=== PATIENT | male | born 1990 | race Caucasian/White ===

== ENCOUNTER 2021-07-25 08:02 | Outpatient (REF) | payer OTHER, SELFPAY ==
[2021-07-25 11:24] LABS: MANUAL DIFF FLAG NO
[2021-07-25 11:44] LABS: Basophils Percent Auto 0.6 % (0-2); Eosinophils Absolute Auto 0.3 X10*3/uL (0.0-0.4); Hematocrit 47.7 % (42.0-52.0); Hemoglobin 16.5 g/dl (14.0-18.0); Imm Gran Abs Auto 0.03 X10*3/uL (0.00-0.03); Imm Gran Pct Auto 0.5 % (0.0-0.4); Lymphocytes Absolute Auto 2.2 X10*3/uL (1.2-4.9); Lymphocytes Percent Auto 34.9 % (20-40); Mean Corpuscular HGB Conc 34.6 g/dl (31.0-36.0); Mean Corpuscular Hemoglobin 29.5 pg (27.0-33.0); Mean Corpuscular Volume 85.3 fL (80.0-98.0); Mean Platelet Volume 10.9 fL (9.4-12.4); Monocytes Absolute Auto 0.7 X10*3/uL (0.1-1.2); Neutrophils Absolute Auto 3.1 x10*3/uL (2.0-8.3); Platelet Count 318 X10*3/uL (160-400); Red Blood Count 5.59 X10*6/uL (4.60-5.80); Red Cell Distribution Width 12.3 % (11.0-16.0); White Blood Count 6.3 X10*3/uL (4.8-10.8)
[2021-07-25 12:25] LABS: Alanine Aminotransferase 63 U/L (0-40); Anion Gap 13 (12-20); Aspartate Amino Transferase 31 U/L (5-37); Blood Urea Nitrogen 11 mg/dL (9-16); Calcium 9.3 mg/dL (8.4-10.2); Carbon Dioxide 27 mmol/L (22-29); Chloride 101 mmol/L (96-108); Cholesterol 147 mg/dL; Estimated Glomerular Filt Rate > 60; Glucose Fasting 129 mg/dL (60-99); HDL Cholesterol 36 mg/dL; LDL Cholesterol Calculated 88 mg/dl; Potassium 4.4 mmol/L (3.3-5.1); Sodium 137 mmol/L (135-145); Triglycerides 115 mg/dL
== END 2021-07-25 08:03 | disposition home or self-care (01) ==
LOC: HO.HMGCLDS 08:02
PROVIDERS: PCP Internal Medicine; Visit Provider Internal Medicine
DX: Z00.00 Encounter for general adult medical examination without abnormal findings (principal); I10 Essential (primary) hypertension
CPT/HCPCS: 36415; 80048; 80061; 84450; 84460; 85025

== ENCOUNTER 2022-12-12 10:53 | Outpatient (AMB) | payer OTHER, SELFPAY ==
--- NOTE | 2022-12-12 11:21 | MHC.PC.OV ---
Vital Signs 12/12/22 11:23 Height 6 ft 3 in Weight 242 lb BMI 30.2 BP 130/80 Blood Pressure Location Lt brachial Position Sitting Pulse 96 Pulse Source Pulse Oximeter Pulse Oximetry (%) 97 Oxygen Delivery Method Room Air Intake Visit Reasons: annual PE Intake Note: Pt is here today for her PE Allergies penicillin V Allergy (Unknown, Verified 12/12/22 11:44) unsure BuPROPion HCl (SR) Allergy (Unknown, Uncoded 12/12/22 11:44) worsened depression and anger Fluoxetine Allergy (Unknown, Uncoded 12/12/22 11:44) chest pains, nightmares Medication List - Last Reconciled 12/12/22 by Chelsie Starks MD nicotine (polacrilex) 4 mg PO Q6H Tobacco use date assessed: 12/12/22 HPI annual PE HPI Details 32-year-old male, here today for a physical exam. Currently trying to quit smoking with the help of nicotine gum, now down to just 1 cigarette a day. Has been feeling well , but complains of loud snoring, excessive daytime sleepiness, and had several witnessed apneic spells, for the last several months. [facility] Medical History (Updated 12/12/22 @ 11:50 by Chelsie Starks MD) Loud snoring Excessive daytime sleepiness Witnessed apneic spells Elevated fasting glucose Cigarette smoker motivated to quit Alopecia Dislocation of right ankle joint Depression ADHD Surgical History No pertinent past surgical history Family History Maternal Grandfather Prostate cancer Other Substance use disorder Social History Housing: House Alcohol intake: former Year quit: 2019 Patient Tobacco Use Status: Current everyday Tobacco user Tobacco use type: Cigarette Cigarette Packs Per Day: 1 Years Smoked: 15 years e-Cigarette/Vaping Use: Never Used service: No Current occupational status: employed Cognitive needs: No Hearing needs: No Vision needs: No Questionnaire PHQ-9 Over the last 2 weeks, how often have you been bothered by any of the following problems? 1. Little interest or pleasure in doing things: not at all 2. Feeling down, depressed, or hopeless: not at all 3. Trouble falling or staying asleep, or sleeping too much: nearly every day 4. Feeling tired or having little energy: several days 5. Poor appetite or overeating: not at all 6. Feeling bad about yourself - or that you are a failure or have let yourself or your family down: not at all 7. Trouble concentrating on things, such as reading the newspaper or watching television: not at all 8. Moving or speaking so slowly that other people could have noticed. Or the opposite - being so fidgety or restless that you have been moving around a lot more than usual: not at all 9. Thoughts that you would be better off or of hurting yourself in some way: not at all Total score: 4 Depression Screening Interpretation: Negative 38422 - PHQ-9 Billing: Yes Source: Developed by Drs. Kamar Tolbert, Laura Yan, Hugh Tracy and colleagues, with an educational pete from [employer]. Thrive Questionnaire Declines Thrive assessment: No Date Thrive assessed: 12/12/22 I am a: Patient What is your living situation today?: I have a steady place to live Within the past 12 months, did the food you bought not last and you didn't have the money to get more?: Never true Within the past 12 months, did you worry whether your food would run out before you got money to buy more?: Never true Do you have trouble paying for medicines?: No Do you have trouble getting transportation to medical appointments?: No Do you have trouble paying your heating and electricity bill?: No Do you have trouble taking care of your child, family member or friend?: No Do you have trouble with day-to-day activities such as bathing, preparing meals, shopping, managing finances, etc.?: No Are you currently unemployed and looking for a job?: No Are you interested in more education?: Yes AUDIT C Alcohol Use Questionnaire (AUDIT-C) 1. How often do you have a drink containing alcohol?: Monthly or less 2. How many drinks containing alcohol do you have on a typical day when you are drinking?: 1 or 2 3. How often do you have six or more drinks on one occasion?: Never Total Score: 1 JR-7 AMB Questionnaire JR-7 Date JR - 7 assessed: 12/12/22 Feeling nervous, anxious, or on edge: 1 = Several days Not being able to stop or control worryin = Not at all Worrying too much about different things: 1 = Several days Trouble relaxin = Not at all Being so restless that it is hard to sit still: 0 = Not at all Becoming easily annoyed or irritable: 0 = Not at all Feeling afraid as if something awful might happen: 1 = Several days Total JR-7 score (0-4 normal; 5-9 mild; 10-14 moderate; 15-21 severe): 3 Source: Developed by Drs. Kamar Tolbert, Laura Yan, Hugh Tracy and colleagues, with an educational pete from [employer]. JR-7 Assessment Billing JR-7 Assessment Tool: JR-7 Assessment 34521 Review of Systems Const Reports as per HPI, Denies body aches, Denies chills, Denies fever(s), Denies headache(s) and Denies malaise Eyes Denies change in vision ENT Reports no additional complaints and Denies headache(s) Card Denies chest pain, Denies rapid heart rate, Denies irregular heart rhythm and Denies lightheadedness Resp Reports as per HPI, Denies chest congestion, Denies cough and Denies wheezing GI Reports no additional complaints Reports no additional complaints Musc Reports no additional complaints Skin/Breast Denies rash Neuro Denies headache(s) Psych Reports no additional complaints Endo Reports no additional complaints Get/Lymph Reports no additional complaints Aller/Immun Denies wheezing Physical exam (Primary Care) Vital Signs: Last Vital Signs Pulse 96 12/12/22 11:23 BP 130/80 12/12/22 11:23 Pulse Ox 97 12/12/22 11:23 Oxygen Delivery Method Room Air 12/12/22 11:23 BMI result Body Mass Index 30.2 Tobacco/Smoking Status: Tobacco use Status Tobacco use date assessed 12/12/22 12/12/22 11:25 Patient Tobacco Use Status Current everyday Tobacco 12/12/22 11:25 Tobacco use type Cigarette 12/12/22 11:25 e-Cigarette/Vaping Use Never Used 12/12/22 11:25 PHQ-9: PHQ-9 Score PHQ-9: Total score 4 12/12/22 12:01 Depression Screening Interpretation: Negative Thrive Assessment: Date of Thrive Assessment Date Thrive assessed 12/12/22 12/12/22 11:30 Const General: cooperative, comfortable and no acute distress Orientation/consciousness: patient oriented x3 HENMT Ears: external ears normal, TM's normal bilaterally and EAC's normal General nose exam: Normal external nose present and No nasal discharge present Mouth: Normal oral and palatal mucosa present, oropharynx normal and moist mucous membranes Throat: Yes posterior oropharynx normal Eyes General: appearance normal, both eyes and all related structures Conjunctivae: conjunctivae normal Pupils: Equal, round and reactive pupils present EOM: EOMs intact bilaterally Neck Neck: Yes full ROM, Yes no lymphadenopathy and Yes supple Chest Chest palpation & inspection: normal inspection of the chest Resp Effort & Inspection: normal respiratory effort and able to speak in complete sentences Auscultation: clear to auscultation bilaterally Cardio Rate: regular rate Rhythm: regular rhythm Heart sounds: S1 normal heart sound present and S2 normal heart sound present GI Inspection: Yes normal to inspection Palpation (GI): Soft to palpation, nontender and no masses Auscultation: normal bowel sounds Male General Exam: Yes normal external exam Back/Spine/Pelvis Cervical Spine: cervical ROM normal Thoracic/Lumbar Spine: thoracic and lumbar spine normal to inspection Skin General skin exam: no rashes or lesions noted Neuro General: patient oriented x3, gait normal, tone normal, moves all extremities, Normal light touch and pain sensation and no focal motor deficits Cranial nerves: Yes Equal, round and reactive pupils present Cognition (Neuro): normal cognition Gait exam (Neuro): Normal gait present Motor exam (neuro): 5/5 motor strength present throughout Extrem General: Yes full ROM, Yes no joint enlargement, Yes no pedal edema, Yes no calf tenderness and Yes normal gait Psych Appearance: grossly normal Mental Status: mental status grossly normal Speech and movement: Normal speech and movement present Affect: normal affect Assessment and Plan Assessment & Plan (1) Annual visit for general adult medical examination with abnormal findings: Code(s): Z00.01 - Encounter for general adult medical examination with abnormal findings Plan: Will check appropriate labs. Recommended dental visit every 6 months and regular eye exams, at least every 2 years. Instructed due self-testicular exam to check for any mass. Had 1 COVID vaccination, does not want to get further vaccines, does not get flu vaccines, up-to-date with his Tdap (2) Loud snoring: Code(s): R06.83 - Snoring Plan: Referred to sleep clinic for evaluation for possible obstructive sleep apnea (3) Excessive daytime sleepiness: Code(s): G47.19 - Other hypersomnia Plan: Referred to sleep clinic for evaluation for possible obstructive sleep apnea (4) Witnessed apneic spells: Code(s): R06.81 - Apnea, not elsewhere classified Plan: Referred to sleep clinic for evaluation for possible obstructive sleep apnea (5) Elevated fasting glucose: Code(s): R73.01 - Impaired fasting glucose Plan: Your fasting blood sugars in the past were elevated above 100 mg/dL. Impaired glucose metabolism increases the risk for developing diabetes mellitus type 2, as well as heart attack and stroke later on. Lifestyle changes at just weight loss, healthy eating habits, and regular exercise are important, and can prevent the progression to diabetes Orders: Orders Basic Metabolic Panel Fasting 12/12/22 R73.01 - Impaired fasting glucose, Z00.01 - Encounter for general adult medical examination with abnormal findings Hemoglobin A1c 12/12/22 R73.01 - Impaired fasting glucose, Z00.01 - Encounter for general adult medical examination with abnormal findings Lipid Panel 12/12/22 R73.01 - Impaired fasting glucose, Z00.01 - Encounter for general adult medical examination with abnormal findings Alanine Aminotransferase 12/12/22 R73.01 - Impaired fasting glucose, Z00.01 - Encounter for general adult medical examination with abnormal findings Aspartate Amino Transferase 12/12/22 R73.01 - Impaired fasting glucose, Z00.01 - Encounter for general adult medical examination with abnormal findings Referrals Sleep Medicine Referral R06.81 - Apnea, not elsewhere classified, G47.19 - Other hypersomnia, R06.83 - Snoring Coding Level of Care Code Est Pt Prev Care 18-39y(64934) Diagnoses Annual visit for general adult medical examination with abnormal findings Z00.01 Loud snoring R06.83 Excessive daytime sleepiness G47.19 Witnessed apneic spells R06.81 Elevated fasting glucose R73.01 Additional Codes JR-7 Assessment Billing - JR-7 Assessment Tool: JR-7 Assessment 56030 ([id number])
[2022-12-12 11:23] VITALS: BP 130/80; PULSE 96; O2SAT 97; BMI 30.2
== END 2022-12-12 12:02 | disposition home or self-care (01) ==
PROVIDERS: PCP Internal Medicine; Visit Provider Internal Medicine
DX: Z00.01 Encounter for general adult medical examination with abnormal findings (principal); R06.83 Snoring; G47.19 Other hypersomnia; R06.81 Apnea, not elsewhere classified; R73.01 Impaired fasting glucose
CPT/HCPCS: 99499

== ENCOUNTER → 2024-09-04 13:21 | Outpatient (BNVA) | payer OTHER, SELFPAY | PROVIDERS: PCP Internal Medicine; Visit Provider Nurse Practitioner Psychiatric/Mental Health ==

== ENCOUNTER → 2024-09-05 09:24 | Outpatient (BNV) | payer OTHER, SELFPAY | PROVIDERS: PCP Internal Medicine; Visit Provider Nurse Practitioner Psychiatric/Mental Health | DX: Z51.81 Encounter for therapeutic drug level monitoring (principal) | CPT/HCPCS: 80307 ==

== ENCOUNTER 2024-09-08 13:24 | Outpatient (AMB) | payer OTHER, SELFPAY ==
--- NOTE | 2024-09-08 13:44 | MHC.AM.SUB ---
Intake Visit Reasons: Intake office Allergies penicillin V Allergy (Unknown, Verified 12/12/22 11:44) unsure BuPROPion HCl (SR) Allergy (Unknown, Uncoded 12/12/22 11:44) worsened depression and anger Fluoxetine Allergy (Unknown, Uncoded 12/12/22 11:44) chest pains, nightmares HPI HPI Intake office: Details: Patient presents for intake and continuation of treatment for stimulant use disorder and alcohol use disorder Patient was seen by RN last week and intake completed at that time RN note reviewed and additional history obtained from patient He reports that he was discharged from [facility] level of care recently and was referred here for continuation of treatment He reports last drink and substance use was on August 26--day of admission to [facility] Crack cocaine and alcohol History of [facility] treatment, including [facility] He reports [facility] was his first formal admission for treatment He states that in the past he had gone to [facility] and prescribed Buprenorphine for the treatment of opiate use He had been taking Dilaudid--denies any opiate use for a long time Denies any history of overdose Denies any injection drug use Reports a strong family history of substance use --reports his mother introduced him to drugs Denies any history of psychiatric admissions or behavioral health treatment Longest period in recovery---current Recovery Supports -Dom and Millie friends who are in recovery -Zohaib -partner Not working at this 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 Discussed continuation of treatment with IOP labs and notes from [facility] reviewed Review of Systems Const Reports as per HPI Physical Exam Const General: cooperative, healthy appearing and well groomed Orientation/consciousness: patient oriented x3 Limitations: no limitations Neuro General: patient oriented x3 Psych Appearance: well kempt Speech and movement: Pressured speech present Affect: Animated affect present Attitude: cooperative Thought process: Circumstantial thought process present Thought content: Normal thought content present Insight: Good insight present (Psych) Judgement: Good judgement present (Psych) Assessment & Plan Assessment & Plan (1) Alcohol use disorder, severe, dependence: Code(s): F10.20 - Alcohol dependence, uncomplicated Category: Medical Plan: relapse prevention discussion continue mediation as prescribed provided with information to [facility] for [facility].IOP admission (2) Cocaine use disorder: Code(s): F14.10 - Cocaine abuse, uncomplicated Category: Medical Plan: relapse prevention discussion continue baclofen as prescribed Medications: New baclofen 10 mg PO TID 90 tabs 0RF duloxetine 20 mg PO DAILY 30 caps 0RF hydroxyzine HCl 50 mg PO TID PRN 90 tabs 0RF anxiety clonidine HCl 0.1 mg PO TID PRN 90 tabs 0RF anxiety quetiapine (Seroquel) 50 mg PO BEDTIME 30 tabs 0RF PFSH Medical History (Updated 09/08/24 @ 16:03 by Shanita Portillo CNP) Loud snoring Excessive daytime sleepiness Witnessed apneic spells Elevated fasting glucose Cigarette smoker motivated to quit Alopecia Dislocation of right ankle joint Depression ADHD Surgical History No pertinent past surgical history Family History Maternal Grandfather Prostate cancer Other Substance use disorder Social History Housing: House Alcohol intake: former Year quit: 2019 Patient Tobacco Use Status: Current everyday Tobacco user Tobacco use type: Cigarette Cigarette Packs Per Day: 1 Years Smoked: 15 years e-Cigarette/Vaping Use: Never Used service: No Current occupational status: employed Cognitive needs: No Hearing needs: No Vision needs: No
== END 2024-09-08 14:27 | disposition home or self-care (01) ==
PROVIDERS: PCP Internal Medicine; Visit Provider Nurse Practitioner Psychiatric/Mental Health
DX: F14.10 Cocaine abuse, uncomplicated (principal); F10.20 Alcohol dependence, uncomplicated
CPT/HCPCS: 99214

== ENCOUNTER → 2024-09-08 13:24 | Outpatient (BNVA) | payer OTHER, SELFPAY | PROVIDERS: PCP Internal Medicine; Visit Provider Nurse Practitioner Psychiatric/Mental Health | DX: F11.20 Opioid dependence, uncomplicated (principal) | CPT/HCPCS: 99212 ==

== ENCOUNTER 2024-09-22 14:07 | Outpatient (AMB) | payer OTHER, SELFPAY ==
--- NOTE | 2024-09-22 14:31 | A.OFFVISCC_ITS ---
Intake Visit Reasons: Follow up Allergies penicillin V Allergy (Unknown, Verified 12/12/22 11:44) unsure BuPROPion HCl (SR) Allergy (Unknown, Uncoded 12/12/22 11:44) worsened depression and anger Fluoxetine Allergy (Unknown, Uncoded 12/12/22 11:44) chest pains, nightmares [facility] HPI Follow up: Details: Patient presents for follow up started [facility] attending 6 days per week From 12-3p--that way he can attend the gym which is very helpful to him NA 1-2x/week He was started on gabapentin 100mg QHS at [facility] as well finds it very helpful continues to abstain from alcohol and substance use discussing challenges with wanting him to return to work--he will be bringing her in to [facility] for family meeting Review of Systems Const Reports as per HPI and Reports no additional complaints Physical Exam Const General: cooperative, healthy appearing and well groomed Nutritional Appearance: average body habitus Orientation/consciousness: patient oriented x3 Limitations: no limitations Neuro General: patient oriented x3 Psych Appearance: well kempt Speech and movement: Normal speech and movement present Affect: normal affect Attitude: cooperative Thought process: Normal thought process present Thought content: Normal thought content present Insight: Good insight present (Psych) Judgement: Good judgement present (Psych) Assessment & Plan Assessment & Plan (1) Cocaine use disorder: Code(s): F14.10 - Cocaine abuse, uncomplicated Category: Medical Plan: * relapse prevention discussion * follow up 3-4 weeks (2) Alcohol use disorder, severe, dependence: Code(s): F10.20 - Alcohol dependence, uncomplicated Category: Medical Plan: * relapse prevention discussion * follow up as scheduled Orders: Referrals Counseling Referral F10.20 - Alcohol dependence, uncomplicated, F14.10 - Cocaine abuse, uncomplicated [facility] Medical History (Updated 09/08/24 @ 16:03 by Shanita Portillo CNP) Loud snoring Excessive daytime sleepiness Witnessed apneic spells Elevated fasting glucose Cigarette smoker motivated to quit Alopecia Dislocation of right ankle joint Depression ADHD Surgical History No pertinent past surgical history Family History Maternal Grandfather Prostate cancer Other Substance use disorder Social History Housing: House Alcohol intake: former Year quit: 2019 Patient Tobacco Use Status: Current everyday Tobacco user Tobacco use type: Cigarette Cigarette Packs Per Day: 1 Years Smoked: 15 years e-Cigarette/Vaping Use: Never Used service: No Current occupational status: employed Cognitive needs: No Hearing needs: No Vision needs: No
== END 2024-09-22 14:47 | disposition home or self-care (01) ==
PROVIDERS: PCP Internal Medicine; Visit Provider Nurse Practitioner Psychiatric/Mental Health
DX: F14.10 Cocaine abuse, uncomplicated (principal); F10.20 Alcohol dependence, uncomplicated
CPT/HCPCS: 99213

== ENCOUNTER → 2024-09-22 14:07 | Outpatient (BNVA) | payer OTHER, SELFPAY | PROVIDERS: PCP Internal Medicine; Visit Provider Nurse Practitioner Psychiatric/Mental Health | DX: F14.10 Cocaine abuse, uncomplicated (principal); F10.20 Alcohol dependence, uncomplicated | CPT/HCPCS: 99212 ==

== ENCOUNTER 2024-11-13 14:55 | Outpatient (AMB) | payer OTHER, SELFPAY ==
--- NOTE | 2024-11-13 15:03 | MHC.AM.SUB ---
Vital Signs 11/13/24 18:17 BP 168/100 H Blood Pressure Location Rt brachial Pulse 116 H Intake Visit Reasons: MAT Office Allergies penicillin V Allergy (Unknown, Verified 12/12/22 11:44) unsure BuPROPion HCl (SR) Allergy (Unknown, Uncoded 12/12/22 11:44) worsened depression and anger Fluoxetine Allergy (Unknown, Uncoded 12/12/22 11:44) chest pains, nightmares HPI HPI MAT Office: Details: Patient presents for follow up Reports he was admitted to [facility] October 09 Discharged October 30 Back to [facility] 5 days per week NA in [place] Reporting high blood pressure --yesterday 180/100--blurred vision and headache (yesterday) No sx today, no dizziness, SOB, headache Discussed risk with BP readings encouraged to be seen in ED or urgent care, patient states he will if he begins to feel bad again Review of Systems Const Reports as per HPI and Reports headache(s) Eyes Reports blurry vision ENT Reports headache(s) Neuro Reports headache(s) Psych Reports anxiety Physical Exam Const General: cooperative, healthy appearing and well groomed Nutritional Appearance: average body habitus Orientation/consciousness: patient oriented x3 Limitations: no limitations Neuro General: patient oriented x3 Psych Appearance: well kempt Speech and movement: Normal speech and movement present Affect: normal affect Attitude: cooperative Thought process: Normal thought process present Thought content: Normal thought content present Insight: Good insight present (Psych) Judgement: Good judgement present (Psych) [facility] Medical History (Updated 09/08/24 @ 16:03 by Shanita Portillo CNP) Loud snoring Excessive daytime sleepiness Witnessed apneic spells Elevated fasting glucose Cigarette smoker motivated to quit Alopecia Dislocation of right ankle joint Depression ADHD Surgical History No pertinent past surgical history Family History Maternal Grandfather Prostate cancer Other Substance use disorder Social History Housing: House Alcohol intake: former Year quit: 2019 Patient Tobacco Use Status: Current everyday Tobacco user Tobacco use type: Cigarette Cigarette Packs Per Day: 1 Years Smoked: 15 years e-Cigarette/Vaping Use: Never Used service: No Current occupational status: employed Cognitive needs: No Hearing needs: No Vision needs: No Assessment & Plan Assessment & Plan (1) Cocaine use disorder: Code(s): F14.10 - Cocaine abuse, uncomplicated Category: Medical Plan: relapse prevention discussion follow up 3-4 weeks advised to present to ED or urgent care for BP management (2) Alcohol use disorder, severe, dependence: Code(s): F10.20 - Alcohol dependence, uncomplicated Category: Medical Plan: relapse prevention discussion follow up as scheduled Medications: Refilled baclofen 10 mg PO TID 270 tabs 0RF clonidine HCl 0.1 mg PO TID PRN 90 tabs 3RF anxiety
[2024-11-13 18:17] VITALS: BP 168/100; PULSE 116
== END 2024-11-13 15:34 | disposition home or self-care (01) ==
PROVIDERS: PCP Internal Medicine; Visit Provider Nurse Practitioner Psychiatric/Mental Health
DX: F14.10 Cocaine abuse, uncomplicated (principal); F10.20 Alcohol dependence, uncomplicated
CPT/HCPCS: 99214

== ENCOUNTER → 2024-11-13 14:55 | Outpatient (BNVA) | payer OTHER, SELFPAY | PROVIDERS: PCP Internal Medicine; Visit Provider Nurse Practitioner Psychiatric/Mental Health | DX: F14.10 Cocaine abuse, uncomplicated (principal); F10.20 Alcohol dependence, uncomplicated | CPT/HCPCS: 99212 ==

== ENCOUNTER 2025-03-13 13:36 | Outpatient (AMB) | payer OTHER, SELFPAY ==
[2025-03-13 13:46] VITALS: PULSE 102; O2SAT 98; BMI 30.6
--- NOTE | 2025-03-13 13:46 | MHC.OFFVIS ---
Vital Signs 03/13/25 13:46 Height 6 ft 3 in Weight 245 lb BMI 30.6 Pulse 102 H Pulse Source Pulse Oximeter Pulse Oximetry (%) 98 Oxygen Delivery Method Room Air Intake Visit Reasons: MAT Intake Allergies penicillin V Allergy (Unknown, Verified 03/13/25 13:46) unsure BuPROPion HCl (SR) Allergy (Unknown, Uncoded 12/12/22 11:44) worsened depression and anger Fluoxetine Allergy (Unknown, Uncoded 12/12/22 11:44) chest pains, nightmares HPI Comments Details: He is a new intake, He was last seen at [facility] two weeks ago. He has Dr Starks as PCP. His last use was earlier this month as has script for Suboxone for seven days from Dr Cristobal,done on 03/10. 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 He has 13 year old twins. Substance use history prior cocaine prior alcohol distant opioids,pills Social no domestic violence denies IVDU Recovery history no AA or peer support mood disorder No SI or HI PFSH Medical History Loud snoring Excessive daytime sleepiness Witnessed apneic spells Elevated fasting glucose Cigarette smoker motivated to quit Alopecia Dislocation of right ankle joint Depression ADHD Surgical History No pertinent past surgical history Family History Maternal Grandfather Prostate cancer Other Substance use disorder Social History Housing: House Alcohol intake: former Year quit: 2019 Patient Tobacco Use Status: Current everyday Tobacco user Tobacco use type: Cigarette Cigarette Packs Per Day: 1 Years Smoked: 15 years e-Cigarette/Vaping Use: Never Used service: No Current occupational status: employed Cognitive needs: No Hearing needs: No Vision needs: No Review of Systems Const All systems reviewed & are unremarkable except as noted in HPI and below Physical Exam Vital Signs: Last Vital Signs Pulse 102 H 03/13/25 13:46 Pulse Ox 98 03/13/25 13:46 Oxygen Delivery Method Room Air 03/13/25 13:46 BMI result Body Mass Index 30.6 Const General: cooperative Assessment & Plan Assessment & Plan (1) Alcohol use disorder, severe, dependence: Code(s): F10.20 - Alcohol dependence, uncomplicated Category: Medical Plan: He has been doing better on Suboxone (2) Cocaine use disorder: Comment: Baclofen helps with cocaine dependence Code(s): F14.10 - Cocaine abuse, uncomplicated Category: Medical Plan: na Medications: New thiamine HCl (vitamin B1) 100 mg PO DAILY 30 caps 3RF 30 days hydroxyzine HCl 50 mg PO TID PRN 90 tabs 3RF itching 30 days clonidine HCl 0.1 mg PO TID 30 days 90 tabs 3RF clonidine HCl 0.1 mg PO TID PRN 90 tabs 3RF withdrawal symptoms 30 days duloxetine 20 mg PO DAILY 30 caps 3RF 30 days baclofen 10 mg PO TID PRN 90 tabs 3RF muscle spasm 30 days folic acid 1 mg PO DAILY 30 tabs 3RF 30 days quetiapine (Seroquel) 100 mg PO BEDTIME 30 tabs 3RF 30 days gabapentin 100 mg PO BID 60 caps 3RF 30 days buprenorphine-naloxone 8-2 mg (Suboxone) 1 film sublingual BID 60 ea 0RF 30 days Coding Level of Care Code New Pt Level 4 (97907) Diagnoses Alcohol use disorder, severe, dependence F10.20 Cocaine use disorder F14.10
== END 2025-03-13 14:21 | disposition home or self-care (01) ==
LOC: HO.HCC 13:36
PROVIDERS: PCP Internal Medicine; Visit Provider Internal Medicine
DX: F10.20 Alcohol dependence, uncomplicated (principal); F14.10 Cocaine abuse, uncomplicated
CPT/HCPCS: 99204

== ENCOUNTER → 2025-03-13 13:36 | Outpatient (BNVA) | payer OTHER, SELFPAY | PROVIDERS: PCP Internal Medicine; Visit Provider Internal Medicine | DX: F10.20 Alcohol dependence, uncomplicated (principal); F14.10 Cocaine abuse, uncomplicated; Z79.899 Other long term (current) drug therapy | CPT/HCPCS: 99202 ==

== ENCOUNTER 2025-05-05 15:41 | Outpatient (AMB) | payer OTHER, SELFPAY ==
[2025-05-05 15:50] VITALS: BP 126/80; PULSE 110; O2SAT 97; BMI 31.7
--- NOTE | 2025-05-05 15:50 | MHC.OFFVIS ---
Vital Signs 05/05/25 15:50 Height 6 ft 3 in Weight 254 lb BMI 31.7 BP 126/80 Pulse 110 H Pulse Oximetry (%) 97 Intake Visit Reasons: MAT Allergies penicillin V Allergy (Unknown, Verified 05/05/25 15:51) unsure BuPROPion HCl (SR) Allergy (Unknown, Uncoded 05/05/25 15:51) worsened depression and anger Fluoxetine Allergy (Unknown, Uncoded 05/05/25 15:51) chest pains, nightmares Medication List - Last Reconciled 05/05/25 by Patricia Philip VISUAL COORDINATOR-C buprenorphine-naloxone 8-2 mg (Suboxone) 1 film sublingual BID 30 days clonidine HCl 0.1 mg PO TID PRN 30 days duloxetine 20 mg PO DAILY 30 days folic acid 1 mg PO DAILY 30 days gabapentin 100 mg PO BID 30 days hydroxyzine HCl 50 mg PO TID PRN 30 days quetiapine (Seroquel) 100 mg PO BEDTIME 30 days thiamine HCl (vitamin B1) 100 mg PO DAILY 30 days HPI Comments Details: A 35-year-old male presents for a follow-up visit r/t SHERIF in remission with use of buprenorphine-naloxone. Reports mid evening mild cravings and is requesting an increase in the buprenorphine-naloxone dose. 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 Denies use of opiates, alcohol, and other substances. Notes smoking cigarettes and is working towards decreasing the frequency. [facility] Medical History Loud snoring Excessive daytime sleepiness Witnessed apneic spells Elevated fasting glucose Cigarette smoker motivated to quit Alopecia Dislocation of right ankle joint Depression ADHD Surgical History No pertinent past surgical history Family History Maternal Grandfather Prostate cancer Other Substance use disorder Social History Housing: House Alcohol intake: former Year quit: 2019 Patient Tobacco Use Status: Current everyday Tobacco user Tobacco use type: Cigarette Cigarette Packs Per Day: 1 Years Smoked: 15 years e-Cigarette/Vaping Use: Never Used service: No Current occupational status: employed Cognitive needs: No Hearing needs: No Vision needs: No Review of Systems Const All systems reviewed & are unremarkable except as noted in HPI and below Physical Exam Vital Signs: Last Vital Signs Pulse 110 H 05/05/25 15:50 BP 126/80 05/05/25 15:50 Pulse Ox 97 05/05/25 15:50 BMI result Body Mass Index 31.7 Const General: cooperative and well groomed Orientation/consciousness: patient oriented x3 Limitations: no limitations Neuro General: patient oriented x3 Psych Appearance: well kempt Mental Status: mental status grossly normal Speech and movement: Normal speech and movement present Affect: Animated affect present Attitude: cooperative Thought process: Normal thought process present Thought content: Normal thought content present Insight: Good insight present (Psych) Judgement: Good judgement present (Psych) Assessment & Plan Assessment & Plan (1) Opioid use disorder, severe, in early remission: Code(s): F11.21 - Opioid dependence, in remission Category: Medical Plan The plan of care is to increase the dose of the buprenorphine-naloxone from 8-2 mg BID to buprenorphine-naloxone 8-2 mg TID. Information and phone number provided for [facility] to connect to mental health services. Medications: Changed From buprenorphine-naloxone 8-2 mg (Suboxone) 1 film sublingual BID 30 days 60 ea 0RF To buprenorphine-naloxone 8-2 mg (Suboxone) One film sublingually three times per day 1 film sublingual TID 90 ea 0RF 30 days Patient Instructions: - start on increased dose of buprenorphine-naloxone as prescribed. - Follow-up with [facility] to initiate mental health services. - Call with questions, concerns, or to report side effects/new onset of symptoms to [facility]. - The patient verbalized understanding and agreed with plan of care. Coding Level of Care Code Est Pt Level 3 (91589) Diagnoses Opioid use disorder, severe, in early remission F11.21
== END 2025-05-05 16:27 | disposition home or self-care (01) ==
PROVIDERS: PCP Internal Medicine; Visit Provider Clinical Nurse Specialist Psychiatric/Mental Health
DX: F11.21 Opioid dependence, in remission (principal)
CPT/HCPCS: 99213

== ENCOUNTER → 2025-05-05 15:41 | Outpatient (BNVA) | payer OTHER, SELFPAY | PROVIDERS: PCP Internal Medicine; Visit Provider Clinical Nurse Specialist Psychiatric/Mental Health | DX: F11.21 Opioid dependence, in remission (principal) | CPT/HCPCS: 99212 ==

== ENCOUNTER 2025-06-04 15:35 | Outpatient (AMB) | payer OTHER, SELFPAY ==
[2025-06-04 16:10] VITALS: BP 138/98; PULSE 88; O2SAT 99
--- NOTE | 2025-06-04 16:10 | MHC.AM.SUB ---
Vital Signs 06/04/25 16:10 BP 138/98 H Position Sitting Pulse 88 Pulse Source Pulse Oximeter Pulse Oximetry (%) 99 Oxygen Delivery Method Room Air Intake Visit Reasons: MAT Allergies penicillin V Allergy (Unknown, Verified 05/05/25 15:51) unsure BuPROPion HCl (SR) Allergy (Unknown, Uncoded 05/05/25 15:51) worsened depression and anger Fluoxetine Allergy (Unknown, Uncoded 05/05/25 15:51) chest pains, nightmares HPI Comments Details: A 35-year-old male presents for a follow-up visit r/t SHERIF in sustained remission with buprenorphine-naloxone 8-2 mg TID. Denies use of opiates, alcohol, and other substances. Engages in conversation regarding misplacing a couple of buprenorphine-naloxone strips and is feeling mild withdrawals. Attributes the occurrence to moving around to different places during the work day. Reports continuing to work full-time and the increase dose of buprenorphine-naloxone helps him to feel stable through the day. Review of Systems Const All systems reviewed & are unremarkable except as noted in HPI and below Physical Exam Vital Signs: Last Vital Signs Pulse 88 06/04/25 16:10 BP 138/98 H 06/04/25 16:10 Pulse Ox 99 06/04/25 16:10 Oxygen Delivery Method Room Air 06/04/25 16:10 Const General: cooperative [facility] Medical History Loud snoring Excessive daytime sleepiness Witnessed apneic spells Elevated fasting glucose Cigarette smoker motivated to quit Alopecia Dislocation of right ankle joint Depression ADHD Surgical History No pertinent past surgical history Family History Maternal Grandfather Prostate cancer Other Substance use disorder Social History Housing: House Alcohol intake: former Year quit: 2019 Patient Tobacco Use Status: Current everyday Tobacco user Tobacco use type: Cigarette Cigarette Packs Per Day: 1 Years Smoked: 15 years e-Cigarette/Vaping Use: Never Used service: No Current occupational status: employed Cognitive needs: No Hearing needs: No Vision needs: No Assessment & Plan Assessment & Plan (1) Opioid use disorder, severe, in early remission: Code(s): F11.21 - Opioid dependence, in remission Category: Medical Plan The plan of care is to continue on buprenorphine-naloxone 8-2 mg TID and follow up in 1 month or sooner if needed. Education provided regarding ANDERSON, Sublocade and Brixadi by inorganic chemist. Medications: New melatonin Take 1-2 tablets at bedtime as needed for symptoms of insomnia. 5 mg PO BEDTIME PRN 60 tabs 3RF sleep 30 days Refilled buprenorphine-naloxone 8-2 mg (Suboxone) One film sublingually three times per day 1 film sublingual TID 90 ea 0RF 30 days Patient Instructions: - Continue with buprenorphine-naloxone as prescribed. - Take melatonin as needed for symptoms of insomnia. - Follow-up in 1 month or sooner if needed. - Call with questions, concerns, or to report side effects/new onset of symptoms to [facility]. - The patient verbalized understanding and agreed with plan of care.
== END 2025-06-04 16:57 | disposition home or self-care (01) ==
PROVIDERS: PCP Internal Medicine; Visit Provider Clinical Nurse Specialist Psychiatric/Mental Health
DX: F11.21 Opioid dependence, in remission (principal)
CPT/HCPCS: 99213

== ENCOUNTER → 2025-06-04 15:35 | Outpatient (BNVA) | payer OTHER, SELFPAY | PROVIDERS: PCP Internal Medicine; Visit Provider Clinical Nurse Specialist Psychiatric/Mental Health | DX: F11.21 Opioid dependence, in remission (principal) | CPT/HCPCS: 99212 ==

== ENCOUNTER 2025-08-31 15:18 | Outpatient (AMB) | payer OTHER, SELFPAY ==
[2025-08-31 15:25] VITALS: BP 138/78; PULSE 82; O2SAT 98
--- NOTE | 2025-08-31 15:25 | A.OFFVISCC_ITS ---
Vital Signs 08/31/25 15:25 BP 138/78 Pulse 82 Pulse Oximetry (%) 98 Intake Visit Reasons: MAT Allergies penicillin V Allergy (Unknown, Verified 08/31/25 15:26) unsure BuPROPion HCl (SR) Allergy (Unknown, Uncoded 08/31/25 15:26) worsened depression and anger Fluoxetine Allergy (Unknown, Uncoded 08/31/25 15:26) chest pains, nightmares HPI Comments Details: A 35-year-old male presents for follow-up visit r/t SHERIF in sustained remission with buprenorphine-naloxone 8-2 mg TID. Reports continues to work full-time and is looking forward to spending holidays with his immediate family. Denies use of opiates, alcohol, and other substances. Review of Systems Const All systems reviewed & are unremarkable except as noted in HPI and below Physical Exam Vital Signs: Last Vital Signs Pulse 82 08/31/25 15:25 BP 138/78 08/31/25 15:25 Pulse Ox 98 08/31/25 15:25 Const General: cooperative [facility] Medical History Loud snoring Excessive daytime sleepiness Witnessed apneic spells Elevated fasting glucose Cigarette smoker motivated to quit Alopecia Dislocation of right ankle joint Depression ADHD Surgical History No pertinent past surgical history Family History Maternal Grandfather Prostate cancer Other Substance use disorder Social History Housing: House Alcohol intake: former Year quit: 2019 Patient Tobacco Use Status: Current everyday Tobacco user Tobacco use type: Cigarette Cigarette Packs Per Day: 1 Years Smoked: 15 years e-Cigarette/Vaping Use: Never Used service: No Current occupational status: employed Cognitive needs: No Hearing needs: No Vision needs: No Assessment & Plan Assessment & Plan (1) Opioid use disorder, severe, in early remission: Code(s): F11.21 - Opioid dependence, in remission Category: Medical Plan The plan of care is to continue with buprenorphine-naloxone 8-2 mg TID, clonidine 0.1 mg daily/as needed, gabapentin 100 mg BID, duloxetine 20 mg daily, quetiapine 100 mg at bedtime, and melatonin 5 mg at bedtime/as needed. Follow-up in 3 months or sooner if needed. Medications: Refilled clonidine HCl Take 1 tablet once per day as needed 0.1 mg PO ONCE PRN 30 tabs 1RF Agitation/anxiety 30 days gabapentin Take 1 capsule twice per day 100 mg PO BID 60 caps 1RF Anxiety 30 days quetiapine (Seroquel) Take 1 tablet at bedtime 100 mg PO BEDTIME 30 tabs 1RF 30 days buprenorphine-naloxone 8-2 mg (Suboxone) One film sublingually three times per day 1 film sublingual TID 90 ea 2RF 30 days duloxetine Take 1 capsule daily 20 mg PO DAILY 30 caps 1RF 30 days melatonin 5 - 10 mg (1 - 2 x 5 mg) PO BEDTIME PRN 180 tabs 1RF for insomnia 90 days NS Patient Instructions: - Continue with buprenorphine-naloxone, clonidine, gabapentin, duloxetine, quetiapine, and melatonin as prescribed. - Follow-up in 3 months or sooner if needed. - Call with questions, concerns, or to report side effects/new onset of symptoms to [facility]. - The patient verbalized understanding and agreed with plan of care.
== END 2025-08-31 15:52 | disposition home or self-care (01) ==
LOC: HO.HCC 15:18
PROVIDERS: PCP Internal Medicine; Visit Provider Clinical Nurse Specialist Psychiatric/Mental Health
DX: F11.21 Opioid dependence, in remission (principal)
CPT/HCPCS: 99213

== ENCOUNTER → 2025-08-31 15:18 | Outpatient (BNVA) | payer OTHER, SELFPAY | PROVIDERS: PCP Internal Medicine; Visit Provider Clinical Nurse Specialist Psychiatric/Mental Health | DX: F11.21 Opioid dependence, in remission (principal); Z79.899 Other long term (current) drug therapy | CPT/HCPCS: 99212 ==